=== PATIENT | female | born 1950 | race Caucasian/White ===

== ENCOUNTER 2018-06-29 11:31 | Emergency (ER) | payer MEDICARE, OTHER ==
[2018-06-29] MEDS ORDERED: Ibuprofen TAB* 600 MG PO ONE (13:08)
[2018-06-29] MEDS ORDERED: Acetaminophen ADULT LIQ* 650 MG/20.3 ML UDC PO ONE (13:24)
--- NOTE | 2018-06-29 13:24 | UC ---
UC General HPI - HPI Summary HPI Summary: PT IS C/O BEING ILL FOR A FEW DAYS WITH HEADACHE, FEVER TO 102, CHILLS, BODYACHESAND COUGH WITH WHITE SPUTUM. SHE HAS VOMITED DUE TO COUGH WELL. - History of Current Complaint Chief Complaint: UCGeneralIllness Stated Complaint: FEVER/CHILLS Time Seen by Provider: 06/29/18 13:16 Hx Obtained From: Patient Onset/Duration: Gradual Onset Timing: Constant Pain Intensity: 0 Alleviating: ALBUTEROL NEB TX Associated Signs & Symptoms: Positive: Cough, Fever, Wheezing - Allergy/Home Medications Allergies/Adverse Reactions: Allergies Allergy/AdvReac Type Severity Reaction Status Date / Time acetaminophen [From Vicodin] Allergy Severe Swelling Verified 06/29/18 12:50 hydrocodone [From Vicodin] Allergy Severe Swelling Verified 06/29/18 12:50 erythromycin base AdvReac Intermediate vomitting Verified 06/29/18 12:50 [From E-Mycin] Home Medications: Home Medications Doxazosin TAB* [Cardura TAB*] 2 mg PO BEDTIME 06/29/18 [History Confirmed ] Levothyroxine TAB* [Synthroid TAB*] 125 mcg PO DAILY 06/29/18 [History Confirmed 06/29/18] PMH/Surg Hx/FS Hx/Imm Hx - Additional Past Medical History Additional PMH: SPINAL STENOSIS Endocrine History: Thyroid Disease Respiratory History: Asthma - Surgical History Surgical History: Yes Surgery Procedure, Year, and Place: appy, tubaligation - Family History Known Family History: Positive: None - Social History Occupation: Disabled Alcohol Use: None Substance Use Type: None Smoking Status (MU): Never Smoked Tobacco - Immunization History Vaccination Up to Date: Yes Review of Systems Constitutional: Fever, Chills ENT: Sinus Congestion Respiratory: Shortness Of Breath, Cough Musculoskeletal: Myalgia Neurological: Headache Is Patient Immunocompromised?: No All Other Systems Reviewed And Are Negative: Yes Physical Exam Triage Information Reviewed: Yes Appearance: Well-Appearing Vital Signs: Initial Vital Signs Temp 102.3 F 06/29/18 12:42 Pulse 117 06/29/18 12:42 Resp 20 06/29/18 12:42 BP 156/71 06/29/18 12:42 Pulse Ox 94 06/29/18 12:42 Vital Signs Reviewed: Yes Eyes: Positive: Conjunctiva Clear ENT: Positive: Pharynx normal, Nasal congestion, TMs normal. Negative: Nasal drainage, Sinus tenderness Neck: Positive: Supple, Nontender, No Lymphadenopathy. Negative: Nuchal Rigidity Respiratory: Positive: No respiratory distress, Decreased breath sounds, Wheezing - OCCASIONAL, Other: - CONGESTED COUGH Cardiovascular: Positive: No Murmur, Tachycardia - 120 Abdomen Description: Positive: Nontender, No Organomegaly, Soft Bowel Sounds: Positive: Present Musculoskeletal: Positive: ROM Intact, No Edema Neurological: Positive: Alert Psychological: Positive: Age Appropriate Behavior Skin Exam: Normal Diagnostics - Laboratory Diagnostic Studies Completed/Ordered: RAPID FLU=NEG - Radiology No standard instances Radiology Interpretation Completed By: Radiologist - 1. DENSITY OVERLYING THE BILATERAL LOWER LUNGS COULD BE DUE TO INCOMPLETE INSPIRATORY EFFORT. ALTERNATIVELY THIS APPEARANCE COULD BE DUE TO PULMONARY EDEMA OR VIRAL PNEUMONIA. Re-Evaluation - Re-Evaluation First Eval Re-Evaluation Time: 14:35 Change: Improved - MUCH LESS COUGH, NO WHEEZING AND AERATION IMPROVED. Course/Dx - Course Course Of Treatment: PT REFUSING STEROIDS BECAUSE THEY MAKE HER HYPER AND SHAKEY. MUCH IMPROVED WITH NEB/FEVER TX. REFUSING PO STEROIDS BUT TOLERATES INHALED STEROID THUS WILL TX WITH FLOVENT AND COVER FOR POSSIBLE PNEUMONIA WELL. VS IMPROVED BUT STILL MILDLY TACHYCARDIC WHICH I THINK IS ILLNESS RELATED PLUS PT STATES THE ALBUTEROL RAISES HER HR WELL. - Differential Dx - Multi-Symptom Provider Diagnoses: FEVER, COUGH, POSSIBLE PNEUMONIA. Discharge - Sign-Out/Discharge Documenting (check all that apply): Patient Departure All imaging exams completed and their final reports reviewed: Yes - Discharge Plan Condition: Improved Disposition: HOME Prescriptions: Albuterol 2.5MG/3ML (0.083%)* [Ventolin 2.5 MG/3 ML NEB.SARAH*] 2.5 mg INH Q6H #1 box DOXYcycline CAP(*) [DOXYcycline 100MG CAP(*)] 100 mg PO BID 10 Days #20 cap Fluticasone HFA 220 mcg(NF) [Flovent HFA 220 Mcg(NF)] 2 puff INH BID #1 mdi Patient Education Materials: Community Acquired Pneumonia (ED) Referrals: Martin ARIZMENDI,Jeramy Briones [Primary Care Provider] - 5 Days Additional Instructions: DIAGNOSIS: FEVER, COUGH, POSSIBLE PNEUMONIA - Billing Disposition and Condition Condition: IMPROVED Disposition: Home - Attestation Statements Provider Attestation: I was available for consult. This patient was seen by the CHELSEA. The patient was not presented to, seen by, or examined by me. -Santi
[2018-06-29] MEDS ORDERED: Albuterol 2.5 MG/3 ML NEB.SOL* (0.083%) INH ONE (13:25)
--- NOTE | 2018-06-29 14:16 | RAD ---
INDICATION: Cough, fever and shortness of breath COMPARISON: None TECHNIQUE: PA and lateral views of the chest were obtained. FINDINGS: The heart and mediastinum are normal in size and contour. Lung volumes appear decreased due to insufficient inspiration. There is overall increased parenchymal density as well as reticulonodular densities overlying the lower lung leone. Visualized bones are normal for the patient's age. There is no radiographic evidence of free air beneath the diaphragm IMPRESSION: 1. DENSITY OVERLYING THE BILATERAL LOWER LUNGS COULD BE DUE TO INCOMPLETE INSPIRATORY EFFORT. ALTERNATIVELY THIS APPEARANCE COULD BE DUE TO PULMONARY EDEMA OR VIRAL PNEUMONIA.
[2018-06-29 14:40] VITALS: BP 121/60
== END 2018-06-29 15:01 | disposition home or self-care (01) ==
LOC: UCCORT 11:31
DX: R50.9 Fever, unspecified (principal); R05 Cough; R00.0 Tachycardia, unspecified; J98.4 Other disorders of lung; Z88.3 Allergy status to other anti-infective agents; Z88.5 Allergy status to narcotic agent
CPT/HCPCS: 71046; 99202; A9270-GY; G0463